=== PATIENT | female | born 1980 | race Caucasian/White ===

== ENCOUNTER → 2016-06-25 | Outpatient (CLI) | payer OTHER, MEDICAID ==
[~2016-06-25] MED LIST: ACET50TA PO; AMOX875T PO; BUPR150T3 PO; BUSP10TA PO; FIORCAP3 PO; GLYB125TA PO; IBUP-1114 PO; OMEP40CA2 PO; PRENTAB40 PO; TYLE500T78 PO
[2016-06-25 19:15] LABS: BASO % 0.2 % (0.0-1.0); EOS # 0.1 K/mm3 (0.0-0.50); EOS % 1.1 % (0.0-3.0); LARGE UNSTAINED CELL # 0.1 K/mm3 (0.0-0.4); LYMPH # 2.5 K/mm3 (1.5-4.5); LYMPH % 25.9 % (24.0-44.0); MEAN CORPUSCULAR HEMOGLOBIN 30.6 pg (27.0-33.0); MEAN CORPUSCULAR HGB CONC 32.3 g/dl (32.0-36.5); MEAN CORPUSCULAR VOLUME 94.7 fl (80.0-96.0); MONO # 0.4 K/mm3 (0.0-0.8); MONO % 4.4 % (0.0-5.0); NEUTROPHILS # 6.2 K/mm3 (1.8-7.7); NEUTROPHILS % 67.4 % (36.0-66.0); PLATELET COUNT, AUTOMATED 375 k/mm3 (150-450); RED CELL DISTRIBUTION WIDTH 13.7 % (11.5-14.5); WHITE BLOOD COUNT 9.2 K/mm3 (4.0-10.0)
[2016-06-28 11:04] LABS: HBsAg Prenatal NEGATIVE (NEGATIVE)
[2016-06-28 11:32] LABS: HIV SCREEN CENTAUR NEGATIVE (NEGATIVE)
== END ==
LOC: M SMT 13:39
PROVIDERS: ATTEND Specialist
DX: Z36 Encounter for antenatal screening of mother (principal)

== ENCOUNTER → 2016-08-02 | Outpatient (CLI) | payer OTHER, MEDICAID | LOC: M SMT 09:58 | PROVIDERS: ATTEND Obstetrics & Gynecology | DX: Z13.79 Encounter for other screening for genetic and chromosomal anomalies (principal) ==

== ENCOUNTER → 2016-08-30 | Outpatient (REF) | payer OTHER, MEDICAID | LOC: M LAB REF 10:58 | PROVIDERS: ATTEND Advanced Practice Midwife | DX: Z36 Encounter for antenatal screening of mother (principal) ==

== ENCOUNTER → 2016-08-30 | Outpatient (CLI) | payer OTHER ==
--- NOTE | 2016-08-31 05:07 | REP ---
Clinical: Anatomical evaluation. Comparison: None . Findings: Examination demonstrates a single live intrauterine in transverse (head to maternal right) presentation. motion is identified by technologist. Placenta is noted anteriorly and grade zero without evidence for placenta previa or abruption. Amniotic fluid volume is normal. Cervix measures 4.9 cm in length and appears closed. No evidence for nuchal cord. Gestational age by current measurements 20 weeks 6 days with PUNEET 01/11/2017 . FHR equals 150 beats per minute. BPD 4.8 cm 20 weeks 4 days HC 17.6 cm 20 weeks 0 days AC 16.0 cm 21 weeks 1 day FL 3.2 cm 19 weeks 6 days HL 3.1 cm 20 weeks 3 days HC/AC ratio 1.09 Estimated weight 356 grams ( 36th percentile). Anatomical assessment demonstrates normal structures including cranium, choroid plexus, cavum, cerebellum/posterior fossa, nose/lips, lungs, four-chamber heart, diaphragm, stomach, cord insertion/three-vessel cord, kidneys/bladder, spine, and extremities. Limited evaluation of the facial profile and cardiac ventricular outflow tracts noted. Impression: Single live intrauterine in transverse lie. Anatomical limitations as described above may warrant reevaluation. Remainder of the anatomical assessment is complete and normal. Signed by Vignesh Pemberton MD 08/31/2016 04:58 A
== END ==
LOC: M SMT 13:04
PROVIDERS: ATTEND Obstetrics & Gynecology
DX: Z34.82 Encounter for supervision of other normal pregnancy, second trimester (principal); Z3A.19 19 weeks gestation of pregnancy

== ENCOUNTER → 2016-10-11 | Outpatient (CLI) | payer OTHER ==
[~2016-10-11] MED LIST changes: +BUPR10TASR PO; +FIOR1CAP PO; +FUROCET; +INSUN SC; +INSUR SC; +NICO21DI5 TD; +OXYC1TAB23 PO; +PERC5TAB12 PO; +PRENTAB9 PO
--- NOTE | 2016-10-11 16:48 | REP ---
Obstetric sonography: History: Supervision of followup anatomy. Findings: Scanning through the gravid uterus demonstrates a viable single intrauterine gestation in a cephalic lie. motion is observed and heart rate is recorded at 144 beats per minute. An anterior grade 1 placenta is seen without evidence of previa or abruption. Amniotic fluid is subjectively normal. Closed cervical length is 4.3 cm. No extrauterine abnormalities observed. There has been less than expected interval growth. Umbilical cord is seen draping across the shoulders. Four-chamber heart and the left and right ventricular cardiac outflow tract views are still less than optimally achieved due to position. The following additional anatomic structures are identified today and felt to be unremarkable: cranium, choroid plexus, cavum, cerebellum posterior fossa, face and profile, lungs, diaphragm, left-sided stomach, abdominal wall cord insertion, three-vessel umbilical cord, kidneys and bladder, spine, upper and lower extremities. Biometry chart: BPD 6.7 cm 27 weeks 0 days Head circumference 24.4 cm 26 weeks 4 days Abdominal circumference 21.5 cm 26 weeks 0 days Femur length 4.6 cm 25 weeks 2 days Humeral length 4.4 cm 26 weeks 3 days Cerebellar diameter 2.9 cm 25 weeks 5 days HC/AC ratio normal 1.14, cephalic index normal 0.77, estimated weight 859 grams 1 pound 14 ounces 20th percentile for 26 weeks 6 days. Impression: Viable single intrauterine gestation at 25 weeks 5 days by today's composite criteria. Expected gestational age estimate based on prior sonography is 26 weeks 6 days. PUNEET by prior sonography 01/11/2017. cardiac structure still less than optimally seen. Signed by Derek Sandoval MD 10/12/2016 07:52 A
[2016-10-11 20:23] LABS: BASO % 0.3 % (0.0-1.0); EOS # 0.2 K/mm3 (0.0-0.50); LARGE UNSTAINED CELL # 0.2 K/mm3 (0.0-0.4); LARGE UNSTAINED CELL % 1.4 % (0.0-4.0); LYMPH # 2.8 K/mm3 (1.5-4.5); LYMPH % 16.5 % (24.0-44.0); MEAN CORPUSCULAR HEMOGLOBIN 31.5 pg (27.0-33.0); MEAN CORPUSCULAR HGB CONC 32.7 g/dl (32.0-36.5); MEAN CORPUSCULAR VOLUME 96.3 fl (80.0-96.0); MONO # 0.9 K/mm3 (0.0-0.8); MONO % 5.8 % (0.0-5.0); NEUTROPHILS # 11.6 K/mm3 (1.8-7.7); NEUTROPHILS % 75.1 % (36.0-66.0); PLATELET COUNT, AUTOMATED 459 k/mm3 (150-450); RED CELL DISTRIBUTION WIDTH 13.2 % (11.5-14.5); WHITE BLOOD COUNT 15.4 K/mm3 (4.0-10.0)
== END ==
LOC: M SMT 14:51
PROVIDERS: ATTEND Specialist
DX: Z36 Encounter for antenatal screening of mother (principal)

== ENCOUNTER → 2016-11-01 | Outpatient (CLI) | payer OTHER ==
--- NOTE | 2016-11-01 13:24 | REP ---
Obstetric ultrasound for growth and follow-up of anatomy: On prior studies, the cardiac structures lower not optimally demonstrated. There is a single intrauterine gestation in a vertex presentation. There is movement and cardiac activity, the heart rate is 133 beats per minute. The placenta is anterior. There is no placenta previa or abruptio. Placenta is grade 1 maturity. The amniotic fluid volume subjectively is normal. Amniotic fluid index is 10.4 (9.0 - 23.3). Cervix is 4.9 cm length. Maternal adnexa and cul-de-sac are unremarkable. By today's ultrasound the gestational age is 29 weeks 2 days with an PUNEET of 01/15/2017. By the first ultrasound this gestation the gestational age is 29 weeks 6 days with an PUNEET of 01/11/2017. weight is 1546 grams (3 pounds, 6 ounces (. This is the 53rd percentile for 29 weeks 6 days. Umbilical artery Doppler assessment: SD ratio 3.52. Resistive index 0.72 Diastolic flow velocity 6.9 cm/sec. This is below the lower range of normal (and centimeters per second). The four-chamber view of the heart is adequately demonstrated. The right ventricular cardiac outflow tract is adequately demonstrated. The left ventricular outflow tract is suboptimally demonstrated. Signed by Berny Monsalve MD 11/01/2016 01:15 P
== END ==
LOC: M SMT 10:38
PROVIDERS: ATTEND Advanced Practice Midwife
DX: O24.419 Gestational diabetes mellitus in pregnancy, unspecified control (principal)

== ENCOUNTER → 2016-11-09 | Outpatient (CLI) | payer OTHER ==
[2016-11-09 19:39] LABS: ALT/SGPT 21 U/L (12-78); AST/SGOT 17 U/L (15-37); BILIRUBIN,TOTAL 0.2 MG/DL (0.2-1.0); GLOMERULAR FILTRATION RATE > 60.0 (>60); URIC ACID 3.5 MG/DL (2.6-6.0)
[2016-11-09 21:49] LABS: BASO % 0.1 % (0.0-1.0); EOS # 0.1 K/mm3 (0.0-0.50); EOS % 0.8 % (0.0-3.0); LARGE UNSTAINED CELL # 0.3 K/mm3 (0.0-0.4); LARGE UNSTAINED CELL % 2.2 % (0.0-4.0); LYMPH # 2.3 K/mm3 (1.5-4.5); LYMPH % 15.2 % (24.0-44.0); MEAN CORPUSCULAR HEMOGLOBIN 31.1 pg (27.0-33.0); MEAN CORPUSCULAR HGB CONC 32.3 g/dl (32.0-36.5); MEAN CORPUSCULAR VOLUME 96.4 fl (80.0-96.0); MONO # 0.9 K/mm3 (0.0-0.8); MONO % 5.9 % (0.0-5.0); NEUTROPHILS # 11.3 K/mm3 (1.8-7.7); NEUTROPHILS % 75.6 % (36.0-66.0); PLATELET COUNT, AUTOMATED 597 k/mm3 (150-450); RED CELL DISTRIBUTION WIDTH 12.8 % (11.5-14.5)
== END ==
LOC: M SMT 14:23
PROVIDERS: ATTEND Advanced Practice Midwife
DX: R51 Headache (principal)

== ENCOUNTER → 2016-11-12 | Outpatient (REF) | payer OTHER ==
[2016-11-12 18:33] LABS: CREATININE, SERUM 0.5 MG/DL (0.6-1.0)
[2016-11-12 19:36] LABS: CREATININE CLEARANCE, URINE 180.6 ML/MIN (75-115)
== END ==
LOC: M LAB REF 18:30
PROVIDERS: ATTEND Advanced Practice Midwife
DX: Z36 Encounter for antenatal screening of mother (principal)

== ENCOUNTER → 2016-11-18 | Outpatient (CLI) | payer OTHER ==
--- NOTE | 2016-11-18 15:02 | REP ---
OB ULTRASOUND: Real-time sonographic evaluation of the gravid uterus is performed. There is a single living intrauterine gestation. Estimated gestational age 32 weeks 2 days, EDC 01/11/2017. Today's measurements indicate appropriate growth. BPD 83 mm = 33 weeks 3 days, 68th percentile HC 305 mm = 34 weeks 0 days, 76th percentile AC 290 mm = 33 weeks 0 days, 62nd percentile FL 58 mm = 30 weeks 2 days, 20th percentile HC/AC ratio 1.05, within normal range. Estimated weight 1953 grams, 46th percentile. Cervix is closed and measures 4.6 cm in length. heart rate 147 beats per minute. Amniotic fluid within normal limits. RON is 9.9, within normal range of 8.5 to 25.3. Biophysical profile score 8 out of 8. S/D ratio 2.78, within normal range. RI 0.64, within normal range. SEEN/GROSSLY UNREMARKABLE Lateral ventricles no Posterior fossa yes Upper lip no Four-chamber heart yes LVOT no RVOT no Stomach yes Cord insertion yes Three vessel cord yes Kidneys yes Bladder yes Spine yes position: Vertex. Placenta: Anterior with no previa. Signed by Berny Camacho MD 11/18/2016 03:19 P
== END ==
LOC: M SMT 12:54
PROVIDERS: ATTEND Advanced Practice Midwife
DX: O14.03 Mild to moderate pre-eclampsia, third trimester (principal); O24.415 Gestational diabetes mellitus in pregnancy, controlled by oral hypoglycemic drugs; Z3A.32 32 weeks gestation of pregnancy

== ENCOUNTER 2016-11-20 10:45 | Outpatient (CLI) | payer OTHER ==
[~2016-11-20] VITALS: Ht 165.1 cm; Wt 90.0 kg
[2016-11-20] VITALS (10 sets, daily range): BP systolic 117–139; BP diastolic 69–89
[~2016-11-20 10:45] MED LIST changes: -BUPR10TASR PO; -FIOR1CAP PO; -FUROCET; -INSUN SC; -INSUR SC; -NICO21DI5 TD; -OXYC1TAB23 PO; -PERC5TAB12 PO; -PRENTAB9 PO
[2016-11-20] MEDS ORDERED: PROMETHAZINE INJ 25 MG/ML VIAL (J2550) IV ONE (12:00)
[2016-11-20] MEDS ORDERED: MORPHINE 2 MG/ML 1ML SYRINGE IV ONE (12:00)
[2016-11-20 12:33] LABS: MEAN CORPUSCULAR HEMOGLOBIN 29.8 pg (27.0-33.0); MEAN CORPUSCULAR HGB CONC 32.3 g/dl (32.0-36.5); MEAN CORPUSCULAR VOLUME 92.3 fl (80.0-96.0); RED CELL DISTRIBUTION WIDTH 12.9 % (11.5-14.5); WHITE BLOOD COUNT 18.8 K/mm3 (4.0-10.0)
[2016-11-20 14:54] LABS: ALT/SGPT 15 U/L (12-78); AST/SGOT 14 U/L (15-37); BILIRUBIN,TOTAL 0.2 MG/DL (0.2-1.0); CREATININE FOR GFR 0.44 MG/DL (0.55-1.02); GLOMERULAR FILTRATION RATE > 60.0 (>60); URIC ACID 3.8 MG/DL (2.6-6.0)
[2016-11-20] MEDS ORDERED: LR 1,000 ML IV ONE (15:00)
== END 2016-11-20 16:40 | disposition home or self-care (01) ==
LOC: M LDO 10:45
PROVIDERS: ATTEND Obstetrics & Gynecology
DX: O14.03 Mild to moderate pre-eclampsia, third trimester (principal); O24.419 Gestational diabetes mellitus in pregnancy, unspecified control; Z3A.31 31 weeks gestation of pregnancy

== ENCOUNTER 2016-11-27 12:20 | Outpatient (CLI) | payer OTHER ==
[~2016-11-27] VITALS: Ht 165.1 cm; Wt 90.0 kg
[2016-11-27] MEDS ORDERED: OMEP40CA2 PO (12:29)
[2016-11-27] MEDS ORDERED: FUROCET (12:29)
[2016-11-27] MEDS ORDERED: PRENTAB9 PO (12:29)
[2016-11-27 12:33] VITALS: BP 121/77
[2016-11-27 12:58] LABS: MEAN CORPUSCULAR HEMOGLOBIN 30.8 pg (27.0-33.0); MEAN CORPUSCULAR HGB CONC 33.3 g/dl (32.0-36.5); MEAN CORPUSCULAR VOLUME 92.6 fl (80.0-96.0); RED CELL DISTRIBUTION WIDTH 12.9 % (11.5-14.5)
[2016-11-27 13:14] LABS: ALT/SGPT 20 U/L (12-78); AST/SGOT 18 U/L (15-37); BILIRUBIN,TOTAL 0.2 MG/DL (0.2-1.0); CREATININE FOR GFR 0.38 MG/DL (0.55-1.02); GLOMERULAR FILTRATION RATE > 60.0 (>60); URIC ACID 3.6 MG/DL (2.6-6.0)
[2016-11-27 13:27] VITALS: BP 133/70
[2016-11-27 13:28] VITALS: BP 116/74
== END 2016-11-27 16:36 | disposition home or self-care (01) ==
LOC: M LDO 12:20
PROVIDERS: ATTEND Obstetrics & Gynecology
DX: O14.03 Mild to moderate pre-eclampsia, third trimester (principal); O26.893 Other specified pregnancy related conditions, third trimester; M54.5 Low back pain; O24.419 Gestational diabetes mellitus in pregnancy, unspecified control; O99.843 Bariatric surgery status complicating pregnancy, third trimester; Z3A.32 32 weeks gestation of pregnancy

== ENCOUNTER → 2016-12-02 | Outpatient (CLI) | payer OTHER ==
[~2016-12-02] MED LIST changes: +BUPR10TASR PO; +FIOR1CAP PO; +FUROCET; +INSUN SC; +INSUR SC; +NICO21DI5 TD; +OXYC1TAB23 PO; +PERC5TAB12 PO; +PRENTAB9 PO
--- NOTE | 2016-12-02 14:38 | REP ---
OBSTETRIC SONOGRAPHY: Limited study. HISTORY: Preeclampsia. Gestational diabetes. For biophysical profile. FINDINGS: Limited obstetric sonography demonstrates a viable single intrauterine gestation in a cephalic lie. An anterior grade 1 placenta is seen without evidence of previa or abruption. Closed cervical length could not be measured due to head position. Amniotic fluid is subjectively normal. Amniotic fluid index is normal at 14.4 cm. heart rate is recorded at 150 beats per minute. Biophysical profile score is 8 out of a possible 8. The S/D ratio in the umbilical cord artery by Doppler is normal at 2.45. Signed by Derek Sandoval MD 12/02/2016 04:00 P
== END ==
LOC: M SMT 13:06
PROVIDERS: ATTEND Advanced Practice Midwife
DX: O24.419 Gestational diabetes mellitus in pregnancy, unspecified control (principal)

== ENCOUNTER → 2016-12-06 | Outpatient (CLI) | payer OTHER ==
--- NOTE | 2016-12-06 13:45 | REP ---
LIMITED OBSTETRIC SONOGRAPHY: History: Decreased movement. FINDINGS: Scanning through the gravid uterus demonstrates a viable single intrauterine gestation in a footling breech lie. motion is observed. heart rate is recorded at 143 beats per minute. An anterior placenta is seen grade 1 without evidence of previa. Amniotic fluid is subjectively normal. RON is normal at 11.7 cm. Biophysical profile score is 8 out of a possible 8. The SD ratio in the umbilical cord artery by Doppler is normal at 2.57. Closed cervical length is 3.2 cm, measured transabdominally. Signed by Derek Sandoval MD 12/06/2016 03:53 P
== END ==
LOC: M RAD 12:49
PROVIDERS: ATTEND Advanced Practice Midwife
DX: O14.03 Mild to moderate pre-eclampsia, third trimester (principal); O24.415 Gestational diabetes mellitus in pregnancy, controlled by oral hypoglycemic drugs

== ENCOUNTER → 2016-12-08 | Outpatient (CLI) | payer OTHER ==
--- NOTE | 2016-12-21 06:27 | REP ---
Clinical: Gestational diabetes for well being. Comparison: 12/06/2016 . Findings: Examination demonstrates a single live intrauterine in cephalic presentation. motion is identified by technologist. Placenta is noted anteriorly and grade one without evidence for placenta previa or abruption. Amniotic fluid volume is normal. No evidence for nuchal cord. Gestational age by first US 35 weeks 1 day with PUNEET 01/11/2017 . Gestational age by current measurements 34 weeks 2 days with PUNEET 01/17/2017. FHR equals 139 beats per minute. Biophysical profile score equals 8/8. Amniotic fluid index 11.4 cm (7.9 - 24.9). Umbilical cord SD ratio equals 2.76 (2.00 - 3.00). Estimated weight 2441 grams ( 38th percentile). Impression: 1. Single live advanced gestation in cephalic presentation demonstrating appropriate interval growth. 2. Biophysical profile score equals 8/8. 3. Amniotic fluid index normal. 4. Estimated weight normal. Signed by Vignesh Pemberton MD 12/21/2016 06:19 A
== END ==
LOC: M SMT 12:17
PROVIDERS: ATTEND Advanced Practice Midwife
DX: O14.03 Mild to moderate pre-eclampsia, third trimester (principal); O24.415 Gestational diabetes mellitus in pregnancy, controlled by oral hypoglycemic drugs; Z3A.34 34 weeks gestation of pregnancy

== ENCOUNTER → 2016-12-17 | Outpatient (CLI) | payer OTHER ==
--- NOTE | 2016-12-17 12:28 | REP ---
Third trimester obstetric ultrasound for preeclampsia: There is a single intrauterine gestation in a vertex presentation. The placenta is anterior. There is no evidence of placenta previa or abruptio. Placenta is grade 1. Subjectively the amniotic fluid volume is normal. The amniotic fluid index is 14.5 (7.6 - 24.7). The heart rate is 136 beats per minute. The cervix is 5.2 cm length. The maternal adnexa and cul-de-sac are unremarkable. Gestational age by the ultrasound today is 35 weeks 5 days with an PUNEET of 01/16/2017. Gestational age by the first ultrasound is 36 weeks 3 days with an PUNEET of 01/11/2017. weight is 2934 grams (6 pounds, 7 ounces). This is the 53rd percentile for 36 weeks 3 days. biophysical profile: Breathing 2 Movement 2 Tone 2 Amniotic fluid volume. 2 Total 11/02 Umbilical artery Doppler assessment: SD ratio 2.74 (1.85 - 2.85) Resistive index 0.64 ( 0.59 - 0.75) Diastolic flow velocity 15.1 cm/sec (normal is greater than 10 cm/sec). Signed by Berny Monsalve MD 12/17/2016 12:20 P
== END ==
LOC: M RAD 10:25
PROVIDERS: ATTEND Advanced Practice Midwife
DX: O24.414 Gestational diabetes mellitus in pregnancy, insulin controlled (principal); Z3A.35 35 weeks gestation of pregnancy

== ENCOUNTER → 2016-12-20 | Outpatient (REF) | payer OTHER | LOC: M LAB REF 17:22 | PROVIDERS: ATTEND Obstetrics & Gynecology | DX: Z36 Encounter for antenatal screening of mother (principal) ==

== ENCOUNTER 2016-12-22 22:05 | Outpatient (CLI) | payer OTHER ==
[~2016-12-22] VITALS: Ht 165.1 cm; Wt 98.0 kg
[~2016-12-22 22:05] MED LIST changes: -BUPR10TASR PO; -FIOR1CAP PO; -INSUN SC; -INSUR SC; -NICO21DI5 TD; -OXYC1TAB23 PO; -PERC5TAB12 PO
[2016-12-22 22:24] VITALS: BP 131/77
[2016-12-22] MEDS ORDERED: KETOROLAC 30 MG/ML VIAL (J1885) IV ONE (22:30)
[2016-12-22] MEDS ORDERED: LR 1,000 ML IV SCH (23:00)
[2016-12-22 23:33] VITALS: BP 119/69
[2016-12-23] MEDS ORDERED: PERCOCET 5MG/325MG TAB PO ONE
[2016-12-23] MEDS ORDERED: INSUR SC (00:21)
[2016-12-23] MEDS ORDERED: FIOR1CAP PO (00:21)
[2016-12-23 01:57] VITALS: BP 128/71
[2016-12-23] MEDS ORDERED: OXYC1TAB23 PO (06:43)
== END 2016-12-23 02:05 | disposition home or self-care (01) ==
LOC: M LDO 22:05
PROVIDERS: ATTEND Specialist
DX: O26.893 Other specified pregnancy related conditions, third trimester (principal); Z3A.36 36 weeks gestation of pregnancy; R51 Headache
CPT/HCPCS: 96374; J1885

== ENCOUNTER → 2016-12-23 | Outpatient (CLI) | payer OTHER ==
[~2016-12-23] MED LIST changes: +BUPR10TASR PO; +FIOR1CAP PO; +INSUN SC; +INSUR SC; +NICO21DI5 TD; +OXYC1TAB23 PO; +PERC5TAB12 PO
--- NOTE | 2016-12-24 02:13 | REP ---
Clinical: Gestational diabetes. well-being. Comparison: 12/17/2016 . Findings: Examination demonstrates a single live intrauterine in breech presentation. motion is identified by technologist. Placenta is noted anteriorly and grade one without evidence for placenta previa or abruption. Amniotic fluid volume is normal. No evidence for nuchal cord. Gestational age by LMP 37 weeks 2 days with PUNEET 01/11/2017 . Gestational age by current measurements 36 weeks 2-day with PUNEET 01/18/2017 . FHR equals 150 beats per minute. Estimated weight 3040 grams ( 48th percentile). Biophysical profile score = 8/8. Amniotic fluid index = 11.0 cm (7.5 - 24.3) Umbilical cord SD ratio = 2.22 (1.60 - 2.60). Impression: Single live advanced gestation in breech presentation. Estimated weight within normal range. Biophysical profile score equals 8/8. Signed by Vignesh Pemberton MD 12/24/2016 02:05 A
== END ==
LOC: M SMT 13:00
PROVIDERS: ATTEND Specialist
DX: O24.414 Gestational diabetes mellitus in pregnancy, insulin controlled (principal); Z3A.36 36 weeks gestation of pregnancy

== ENCOUNTER 2016-12-28 16:31 | Inpatient (IN) | payer OTHER ==
[2016-12-28] VITALS (10 sets, daily range): BP systolic 109–132; BP diastolic 61–83
[~2016-12-28] VITALS: Ht 165.1 cm; Wt 95.3 kg
[~2016-12-28 16:31] MED LIST changes: -BUPR10TASR PO; -INSUN SC; -NICO21DI5 TD; -PERC5TAB12 PO
[2016-12-28] MEDS ORDERED: NS 1,000 ML IV SCH (17:08)
[2016-12-28] MEDS ORDERED: FIORICET TAB PO PRN (17:15)
[2016-12-28] MEDS ORDERED: INSULIN IV RATE CHANGE DOCUMENTATION ML/HR XX SCH (17:15)
[2016-12-28] MEDS ORDERED: miSOPROStol 50 MCG 1/2 TAB (S0191) PO ONE (17:15)
[2016-12-28] MEDS ORDERED: INSUR SC (17:23)
[2016-12-28] MEDS ORDERED: INSUN SC ×2 (17:23)
--- NOTE | 2016-12-28 17:53 | HPE ---
DATE OF ADMISSION: 12/28/2016 Marianela is a 36-year-old 6, para 2-2-1-3 at 36-4/7 weeks gestation with an estimated date of confinement (EDC) of 01/21/2017, based on last menstrual period and confirmed by first trimester ultrasound. She presents to labor and delivery today after evaluation in the office for a report of unrelenting headache that has not been relieved with Tylenol or Fioricet as it has in the past. She does report floaters in her vision, denies blurred vision and tunnel vision, denies epigastric pain and right upper quadrant discomfort. She denies vaginal bleeding, leakage of fluid. She does report an occasional contraction and her fetus has been active. care initiated at [facility] in the first trimester. course complicated by advanced maternal age with history of second trimester loss, history of gastric bypass, bowel obstruction times two, history of depression, history of gestational hypertension and preeclampsia, history of gestational diabetes, this current insulin dependent diabetes, preeclampsia. OBSTETRICAL HISTORY: 1. April 1997 at 8 weeks gestation, spontaneous miscarriage. 2. January 1999, spontaneous vaginal delivery, 20 week twin gestation, demise. 3. February 2000 at 37-3/7 weeks gestation, spontaneous vaginal delivery following an induction of labor of a 7 pound 3 ounce female for gestational hypertension. 4. September 2004 at 40 weeks gestation, spontaneous vaginal delivery following induction of labor for gestational hypertension, 8 pound 4 ounce male. 5. December 2015, spontaneous vaginal delivery following induction of labor for gestational hypertension and diabetes, 6 pound 11 ounce male. OBSTETRICAL LABORATORY DATA: O negative, antibody screen negative, Rubella immune, VDRL nonreactive, urine culture no growth, hepatitis B surface antigen negative, HIV negative, hepatitis C antibody negative, gonorrhea and chlamydia negative, quad screen negative, GBS negative. She did undergo preeclamptic profile and 24-hour urine on 11/09/2016, returned normal labs as far as the liver enzymes, uric acid was 3.5, 24-hour urine for protein was 494.4 mg. Labs will be repeated today. PAST MEDICAL HISTORY: 1. Gestational diabetes. 2. Depression. 3. Anxiety. 4. Abnormal pap smear. 5. Positive human papillomavirus (HPV). 6. Childhood varicella. PAST SURGICAL HISTORY: 1. Gastric bypass. 2. Cholecystectomy. 3. Bowel obstruction times two. FAMILY HISTORY: Hypertension. SOCIAL HISTORY: The patient is single, however the father of the baby is at bedside and supportive. She is a smoker, she reports smoking about a pack per day. She does have a history of opiate addiction and underwent treatment inpatient and outpatient in 2015 and reports being sober since. Positive HPV history. Denies history of abuse; physical, sexual, and emotional. ALLERGIES: No known drug allergies. CURRENT MEDICATIONS: Includes: - vitamin D - omeprazole - Wellbutrin - BuSpar - vitamin B12 - her current insulin regimen, 0 units of regular insulin with 20 units of NPH insulin every morning and 10 units of regular insulin with 19 units of NPH every evening OBJECTIVE: Temperature 97.4, pulse 103, blood pressure 135/82, respirations 16. heart rate is 135, moderate variability, positive accelerations, no decelerations. Abdomen is gravid, cephalic presentation confirmed by bedside ultrasound in the office prior to admission this afternoon. Sterile vaginal exam: 1 cm dilated, 50% effaced, -3 station. ASSESSMENT: Intrauterine at 36-4/7 weeks. heart rate category 1. Preeclampsia with severe features. Insulin dependent gestational diabetes. Advanced maternal age. PLAN: Per consult with Dr. Ney Mckenna, admit the patient to labor and delivery. Sequentials. Bed rest with bathroom privileges. Insulin drip. Betamethasone for lung maturity. Preeclamptic labs, complete blood count (CBC), spot urine, urine toxicology for admission. Start induction of labor due to preeclampsia with severe features, unrelenting headache not improved with medication. I did review risks to induction and expectant management including, but not limited to, failed induction, increased risk for a section, intolerance to labor. Likely will start IV Pitocin, consider assisted rupture of membranes once patient is comfortable with epidural. I do anticipate labor and a spontaneous vaginal delivery. The patient and her partner have had all of their questions answered and desire to proceed with induction.
[2016-12-28 18:15] LABS: MEAN CORPUSCULAR HEMOGLOBIN 28.4 pg (27.0-33.0); MEAN CORPUSCULAR HGB CONC 31.9 g/dl (32.0-36.5); MEAN CORPUSCULAR VOLUME 89.1 fl (80.0-96.0); RED CELL DISTRIBUTION WIDTH 13.9 % (11.5-14.5)
[2016-12-28] MEDS: BETAMETHASONE SOLUSPAN 6MG/ML INJ 5ML (J0702) IM SCH (18:28)
[2016-12-28 18:44] LABS: ALT/SGPT 26 U/L (12-78); AST/SGOT 32 U/L (15-37); BILIRUBIN,TOTAL 0.2 MG/DL (0.2-1.0); CREATININE FOR GFR 0.45 MG/DL (0.55-1.02); GLOMERULAR FILTRATION RATE > 60.0 (>60); URIC ACID 4.5 MG/DL (2.6-6.0)
[2016-12-28] MEDS ORDERED: LR 1,000 ML IV SCH (22:33)
[2016-12-28] MEDS ORDERED: OXYTOCIN DRIP 30 UNITS in APPROPRIATE DILUENT 1 EA IV SCH (22:45)
[2016-12-28] MEDS ORDERED: PROMETHAZINE INJ 25 MG/ML VIAL (J2550) IV ONE (22:45)
[2016-12-28] MEDS ORDERED: BUTORPHANOL 2 MG/ML INJ (J0595) IV ONE (22:45)
[2016-12-28] MEDS: INSULIN HUMAN REGULAR 100 UNITS in NS 99 ML IV SCH (23:44)
[2016-12-29] VITALS (41 sets, daily range): BP systolic 99–167; BP diastolic 51–98
[2016-12-29] MEDS: INSULIN HUMAN REGULAR 100 UNITS in NS 99 ML IV SCH ×2 (00:38→10:06)
[2016-12-29] MEDS ORDERED: FENTANYL 2MCG/ML ROPIVACAINE 0.2% IN 0.9% NACL 200ML IVBAG As Ordered ONE (02:03)
[2016-12-29] MEDS ORDERED: EPIDURAL/PCA KEYS XX PRN (04:10)
[2016-12-29] MEDS ORDERED: EPIDURAL COMMENT XX SCH (04:10)
[2016-12-29] MEDS ORDERED: FENTANYL/ROPIVACAINE/NACL BAG 200 ML EPIDURAL SCH (04:10)
[2016-12-29] MEDS ORDERED: diphenhydrAMINE INJ 50MG/ML VIAL (J1200) IV PRN (04:10)
[2016-12-29] MEDS ORDERED: ONDANSETRON 4MG/2ML VIAL (J2405) IV PRN (04:10)
[2016-12-29] MEDS ORDERED: REFRIGERATOR IV KEYS XX PRN (04:10)
[2016-12-29] MEDS ORDERED: LACTATED RINGER'S 1000 ML IV PRN (04:10)
[2016-12-29] MEDS ORDERED: NALOXONE INJ 0.4 MG/1 ML VIAL (J2310) IV PRN (04:10)
[2016-12-29] MEDS ORDERED: ePHEDrine SULFATE 25 MG/5 ML(5MG/ML) SYRINGE IV PRN (04:10)
[2016-12-29] MEDS: BETAMETHASONE SOLUSPAN 6MG/ML INJ 5ML (J0702) IM SCH (06:39)
[2016-12-29] MEDS: NICOTINE 21MG/24HR 1 EA TRANSDERMAL TD SCH (10:01)
[2016-12-29 11:09] LABS: CORD GAS ABE V -6.8; CORD GAS O2 SAT V 69.5 %; CORD GAS PCO2 V 39.6 mmHg; CORD GAS PH V 7.3 UNITS; CORD GAS PO2 V 30.3 mmHg; CORD GAS SBC V 18.3 MEQ/L; CORD GAS TCO2 V 20.3 MEQ/L
[2016-12-29 11:09] LABS: CORD GAS ABE A -9.1; CORD GAS HCO3 A 20.1 MEQ/L; CORD GAS PCO2 A 56.5 mmHg; CORD GAS PH A 7.17 UNITS; CORD GAS PO2 A 37.2 mmHg; CORD GAS SBC A 16.8 MEQ/L; CORD GAS TCO2 A 21.9 MEQ/L
[2016-12-29] MEDS ORDERED: DOCUSATE SODIUM 100 MG CAP PO PRN (11:15)
[2016-12-29] MEDS ORDERED: RHOGAM 300 MCG (1500 IU) INJ (J2790) IM SCH (11:15)
[2016-12-29] MEDS ORDERED: OXYTOCIN DRIP 30 UNITS in APPROPRIATE DILUENT 1 EA IV SCH (11:15)
[2016-12-29] MEDS ORDERED: DIBUCAINE 1% OINTMENT 30GM TOP PRN (11:15)
[2016-12-29] MEDS ORDERED: ACETAMINOPHEN 500 MG TAB PO PRN (11:15)
[2016-12-29] MEDS ORDERED: ANUSOL HC CREAM 30GM TOP PRN (11:15)
[2016-12-29] MEDS ORDERED: MEASLES,MUMPS,RUBELLA VACCINE INJ (MMR-II) (90707) SC SCH (11:15)
--- NOTE | 2016-12-29 11:26 | DN ---
DATE: 12/29/2016 Marianela is a 36-year-old, 6, para 2-3-1-4 now who was admitted to labor and delivery for induction of labor due to preeclampsia with severe features. She had one dose of misoprostol, assisted rupture of membranes and IV Pitocin and labor did ensue. She did utilize an epidural for her labor coping. She progressed to full dilation at 1045. She pushed to a normal spontaneous vaginal delivery of a live male infant in occiput anterior (OA) position with restitution to left occiput transverse (LOT) position at 1051. There was no nuchal cord. The shoulders delivered spontaneously and the corpus immediately followed. The was placed on the maternal abdomen, crying and active. Mouth and nares were bulb suctioned. The cord was clamped times two and cut by the father of the baby. A spontaneous expulsion of an intact placenta with three vessel cord by Schultze mechanism was at 1056. Uterine hemostasis achieved with IV Pitocin rapid infusion and uterine fundal massage. Estimated blood loss was 250 mL. The perineum and vagina inspected, noted to be intact. No need for any repair. The male weighed 3210 grams, 7 pounds 1 ounce, and 9 and 9. Mom plans to breast feed her son. The family have named their son Temo. At the close of delivery, needle counts, lap counts and instrument counts were correct and verified.
[2016-12-29] MEDS ORDERED: SLF 3 ML SYR IV PRN (14:30)
[2016-12-29] MEDS ORDERED: PERCOCET 5MG/325MG TAB PO PRN (17:15)
[2016-12-29] MEDS: OMEPRAZOLE 20 MG CAP PO SCH (17:45)
[2016-12-29] MEDS ORDERED: PERCOCET 5MG/325MG TAB PO ONE (19:45)
[2016-12-29] MEDS ORDERED: busPIRone 10 MG TAB PO PRN (20:00)
[2016-12-29] MEDS: SLF 3 ML SYR IV SCH (21:05)
[2016-12-29] MEDS: buPROPion **SR TABLET** (ZYBAN) 150MG PO SCH (21:05)
[2016-12-29] MEDS: PERCOCET 5MG/325MG TAB PO SCH (23:33)
[2016-12-29] MEDS: ACETAMINOPHEN 500 MG TAB PO SCH (23:33)
[2016-12-30] MEDS: PERCOCET 5MG/325MG TAB PO SCH (05:03)
[2016-12-30] MEDS: ACETAMINOPHEN 500 MG TAB PO SCH (05:03)
[2016-12-30] MEDS: SLF 3 ML SYR IV SCH ×2 (06:00→22:00)
--- NOTE | 2016-12-30 06:19 | IPNPDOC ---
Text Note Date of Service The patient was seen on 12/30/16. NOTE Pt adequately managed on scheduled tylenol with percocet Q 6 hours overnight. Now reports severe R flank pain that radiates to groin. Writhing in bed, crying. Abdomen soft. Fundus firm, down 1 FB Perineum intact Lochia rubra light without odor VSS - 97.7, 136/74, 91, 97% Stat renal scan, preeclampsia panel and CMP ordered. K pack pending results. VS,Fishbone, I+O VS, Fishbone, I+O Vital Signs Date Time Temp Pulse Resp B/P (MAP) Pulse Ox O2 Delivery O2 Flow Rate FiO2 12/30/16 05:03 18 12/29/16 23:33 Room Air 12/29/16 17:36 98.9 89 133/78 (96) Janine Conti CNM Dec 30, 2016 06:19
[2016-12-30 06:44] LABS: MEAN CORPUSCULAR HEMOGLOBIN 28.5 pg (27.0-33.0); MEAN CORPUSCULAR HGB CONC 31.8 g/dl (32.0-36.5); MEAN CORPUSCULAR VOLUME 89.7 fl (80.0-96.0); RED CELL DISTRIBUTION WIDTH 13.8 % (11.5-14.5); WHITE BLOOD COUNT 21.8 10^3/uL (4.0-10.0)
[2016-12-30 06:46] VITALS: BP 136/74
[2016-12-30 07:04] LABS: ALBUMIN 2.3 GM/DL (3.2-5.2); ALBUMIN/GLOBULIN RATIO 0.59 (1.00-1.93); ALKALINE PHOSPHATASE 109 U/L (45-117); ALT/SGPT 21 U/L (12-78); ANION GAP 10 MEQ/L (8-16); AST/SGOT 21 U/L (15-37); BILIRUBIN,DIRECT < 0.1 MG/DL (0.0-0.2); BILIRUBIN,TOTAL 0.1 MG/DL (0.2-1.0); BLOOD UREA NITROGEN 11 MG/DL (7-18); CALCIUM LEVEL 7.6 MG/DL (8.5-10.1); CARBON DIOXIDE LEVEL 21 MEQ/L (21-32); CHLORIDE LEVEL 109 MEQ/L (98-107); CREATININE FOR GFR 0.44 MG/DL (0.55-1.02); GLOMERULAR FILTRATION RATE > 60.0 (>60); GLUCOSE, FASTING 98 MG/DL (70-105); SODIUM LEVEL 140 MEQ/L (136-145); TOTAL PROTEIN 6.2 GM/DL (6.4-8.2); URIC ACID 5.3 MG/DL (2.6-6.0)
[2016-12-30] MEDS ORDERED: LR 1,000 ML IV SCH (07:30)
[2016-12-30] MEDS ORDERED: LACTATED RINGER'S 1000 ML IV ONE (07:30)
[2016-12-30] MEDS ORDERED: INFLUENZA QUADRIVALENT PF VACCINE 0.5ML SYRINGE (90686) IM ONE (09:00)
[2016-12-30] MEDS: OMEPRAZOLE 20 MG CAP PO SCH (09:06)
[2016-12-30] MEDS: PRENATAL VITAMINS CHEWABLE TABLET PO SCH (09:06)
[2016-12-30] MEDS: buPROPion **SR TABLET** (ZYBAN) 150MG PO SCH ×2 (09:07→21:19)
--- NOTE | 2016-12-30 09:19 | REP ---
Renal ultrasound: The kidneys are normal size. The right kidney measures 12.9 x 7.5 x 5.1 cm. The left kidney measures 13.7 x 6.5 x 6.9 cm. Renal cortical echogenicity is normal bilaterally. There is no hydronephrosis, calculus, mass or cyst on the right on the left. Impression: Normal bilateral renal ultrasound. Bladder ultrasound: The bladder is adequately distended. With color Doppler assessment there are bilateral ureteral jets into the urinary bladder. No bladder wall polyps or masses are identified. Impression: Negative bladder ultrasound. Signed by Berny Monaslve MD 12/30/2016 09:11 A
[2016-12-30] MEDS ORDERED: MORPHINE 2 MG/ML 1ML SYRINGE IV PRN (10:15)
[2016-12-30] MEDS ORDERED: PERCOCET 5MG/325MG TAB PO PRN (10:15)
[2016-12-30] MEDS: PERCOCET 5MG/325MG TAB PO PRN ×3 (10:52→19:36)
[2016-12-30] MEDS: NICOTINE 21MG/24HR 1 EA TRANSDERMAL TD SCH (11:20)
[2016-12-30 18:00] VITALS: BP 130/74
[2016-12-31] MEDS: PERCOCET 5MG/325MG TAB PO PRN ×3 (00:03→13:05)
[2016-12-31 06:00] VITALS: BP 130/78
[2016-12-31] MEDS ORDERED: OXYC1TAB23 PO ×2 (08:07→08:27)
[2016-12-31] MEDS ORDERED: NICO21DI5 TD (08:23)
[2016-12-31] MEDS ORDERED: BUPR10TASR PO (08:23)
[2016-12-31] MEDS ORDERED: PERC5TAB12 PO (08:27)
[2016-12-31] MEDS ORDERED: BUSP10TA PO (08:27)
[2016-12-31] MEDS: PRENATAL VITAMINS CHEWABLE TABLET PO SCH (08:56)
[2016-12-31] MEDS: OMEPRAZOLE 20 MG CAP PO SCH (08:56)
[2016-12-31] MEDS: buPROPion **SR TABLET** (ZYBAN) 150MG PO SCH (08:56)
[2016-12-31] MEDS: NICOTINE 21MG/24HR 1 EA TRANSDERMAL TD SCH ×2 (08:57→12:55)
[2017-01-01 15:19] LABS: GC Butalbital 2181 ng/mL (Cutoff=200)
== END 2016-12-31 14:50 | disposition home or self-care (01) | DRG 560 ==
LOC: M LDI 16:31 → M OBS 12-29 14:10
PROVIDERS: ADMIT Advanced Practice Midwife; ATTEND Advanced Practice Midwife
PROC: 3E0DXGC Introduction of Other Therapeutic Substance into Mouth and Pharynx, External Approach (ICD-10-PCS; 2016-12-28)
PROC: 10E0XZZ Delivery of Products of Conception, External Approach (ICD-10-PCS; principal; 2016-12-29)
PROC: 10907ZC Drainage of Amniotic Fluid, Therapeutic from Products of Conception, Via Natural or Artificial Opening (ICD-10-PCS; 2016-12-29)
DX: O14.14 Severe pre-eclampsia complicating childbirth (principal); O99.344 Other mental disorders complicating childbirth; F32.9 Major depressive disorder, single episode, unspecified; O24.424 Gestational diabetes mellitus in childbirth, insulin controlled; Z3A.36 36 weeks gestation of pregnancy; Z37.0 Single live birth; Z98.84 Bariatric surgery status; F41.0 Panic disorder [episodic paroxysmal anxiety]; Z90.49 Acquired absence of other specified parts of digestive tract; F17.210 Nicotine dependence, cigarettes, uncomplicated; Z79.4 Long term (current) use of insulin; O99.334 Smoking (tobacco) complicating childbirth; O14.93 Unspecified pre-eclampsia, third trimester

== ENCOUNTER → 2018-08-14 | Outpatient (REF) | payer BC, MEDICAID ==
[~2018-08-14] MED LIST changes: -ACET50TA PO; +BUPR10TASR PO; +INSUN SC; +MAPA500T2 PO; +NICO21DI6 TD; +PERC5TAB12 PO
[2018-08-14 13:15] LABS: HEMATOCRIT 30.9 % (36.0-47.0); HEMOGLOBIN 8.9 g/dl (12.0-15.5); MEAN CORPUSCULAR HEMOGLOBIN 23.3 pg (27.0-33.0); MEAN CORPUSCULAR HGB CONC 28.8 g/dl (32.0-36.5); MEAN CORPUSCULAR VOLUME 80.9 fl (80.0-96.0); PLATELET COUNT, AUTOMATED 520 10^3/uL (150-450); RED BLOOD COUNT 3.82 10^6/uL (4.00-5.40); WHITE BLOOD COUNT 6.3 10^3/uL (4.0-10.0)
[2018-08-14 19:10] LABS: ALBUMIN 3.6 GM/DL (3.2-5.2); ALT/SGPT 23 U/L (12-78); BILIRUBIN,TOTAL 0.2 MG/DL (0.2-1.0); BLOOD UREA NITROGEN 14 MG/DL (7-18); CALCIUM LEVEL 8.9 MG/DL (8.5-10.1); CARBON DIOXIDE LEVEL 25 MEQ/L (21-32); CHLORIDE LEVEL 110 MEQ/L (98-107); CHOLESTEROL LEVEL 137 MG/DL (<200); CHOLESTEROL RISK RATIO 2.403 (<5); CREATININE FOR GFR 0.62 MG/DL (0.55-1.30); GLOMERULAR FILTRATION RATE > 60.0 (>60); GLUCOSE, FASTING 76 MG/DL (70-100); HDL CHOLESTEROL 57 MG/DL (>40); LDL CHOLESTEROL 67 MG/DL (<100); MAGNESIUM LEVEL 2.2 MG/DL (1.8-2.4); NON-HDL-C 80 MG/DL; POTASSIUM SERUM 4.9 MEQ/L (3.5-5.1); SODIUM LEVEL 142 MEQ/L (136-145); TOTAL 25(OH) VITAMIN D 61.4 NG/ML (30.0-100.0); TOTAL PROTEIN 6.6 GM/DL (6.4-8.2); TRIGLYCERIDES LEVEL 67 MG/DL (<150); VITAMIN B12 LEVEL > 2000 PG/ML (247-911)
== END ==
LOC: M SFHCADAM 08:07
PROVIDERS: ATTEND Physician Assistant
DX: F17.200 Nicotine dependence, unspecified, uncomplicated (principal); K21.9 Gastro-esophageal reflux disease without esophagitis; F41.8 Other specified anxiety disorders; F90.9 Attention-deficit hyperactivity disorder, unspecified type; Z79.899 Other long term (current) drug therapy

== ENCOUNTER → 2018-09-13 | Outpatient (REF) | payer BC, MEDICAID, SELFPAY ==
[2018-09-13 19:47] LABS: HEMATOCRIT 34.5 % (36.0-47.0); HEMOGLOBIN 10.5 g/dl (12.0-15.5); MEAN CORPUSCULAR HEMOGLOBIN 25.7 pg (27.0-33.0); MEAN CORPUSCULAR HGB CONC 30.4 g/dl (32.0-36.5); MEAN CORPUSCULAR VOLUME 84.4 fl (80.0-96.0); PLATELET COUNT, AUTOMATED 462 10^3/uL (150-450); RED BLOOD COUNT 4.09 10^6/uL (4.00-5.40); WHITE BLOOD COUNT 8.9 10^3/uL (4.0-10.0)
[2018-09-13 19:57] LABS: PERCENT SATURATION 14.3 % (13.2-45.0)
== END ==
LOC: M SFHCADAM 18:09
PROVIDERS: ATTEND Physician Assistant
DX: D64.9 Anemia, unspecified (principal)

== ENCOUNTER → 2019-08-01 | Outpatient (REF) | payer BC, MEDICAID ==
[~2019-08-01] MED LIST changes: -OMEP40CA2 PO; +OMEP40CA97 PO
[2019-08-01 12:56] LABS: BASO # 0.1 10^3/uL (0.0-0.2); BASO % 0.6 % (0.0-1.0); EOS # 0.2 10^3/uL (0.0-0.5); HEMATOCRIT 41.6 % (36.0-47.0); HEMOGLOBIN 13.6 g/dl (12.0-15.5); LYMPH # 2.8 10^3/uL (1.5-5.0); LYMPH % 29.3 % (24.0-44.0); MEAN CORPUSCULAR HEMOGLOBIN 32.1 pg (27.0-33.0); MEAN CORPUSCULAR HGB CONC 32.7 g/dl (32.0-36.5); MEAN CORPUSCULAR VOLUME 98.1 fl (80.0-96.0); MONO # 0.7 10^3/uL (0.0-0.8); MONO % 7.6 % (0.0-5.0); NEUTROPHILS # 5.8 10^3/uL (1.5-8.5); NEUTROPHILS % 60.2 % (36.0-66.0); PLATELET COUNT, AUTOMATED 372 10^3/uL (150-450); RED BLOOD COUNT 4.24 10^6/uL (4.00-5.40); WHITE BLOOD COUNT 9.6 10^3/uL (4.0-10.0)
[2019-08-01 13:25] LABS: ALT/SGPT 27 U/L (12-78); BILIRUBIN,TOTAL 0.4 MG/DL (0.2-1.0); BLOOD UREA NITROGEN 15 MG/DL (7-18); CARBON DIOXIDE LEVEL 27 MEQ/L (21-32); CHLORIDE LEVEL 104 MEQ/L (98-107); CHOLESTEROL LEVEL 162 MG/DL (<200); CREATININE FOR GFR 0.58 MG/DL (0.55-1.30); GLOMERULAR FILTRATION RATE > 60.0 (>60); GLUCOSE, FASTING 101 MG/DL (70-100); HDL CHOLESTEROL 50 MG/DL (>40); LDL CHOLESTEROL 98 MG/DL (<100); NON-HDL-C 112 MG/DL; POTASSIUM SERUM 4.4 MEQ/L (3.5-5.1); SODIUM LEVEL 138 MEQ/L (136-145); TOTAL 25(OH) VITAMIN D 71.5 NG/ML (30.0-100.0); TOTAL PROTEIN 7.4 GM/DL (6.4-8.2); TRIGLYCERIDES LEVEL 72 MG/DL (<150)
== END ==
LOC: M LABDRWAD 12:22
PROVIDERS: ATTEND Nurse Practitioner Psychiatric/Mental Health
DX: F33.1 Major depressive disorder, recurrent, moderate (principal)

== ENCOUNTER → 2020-07-03 | Outpatient (REF) | payer BC ==
[~2020-07-03] MED LIST changes: +BUPR150T12 PO; -BUPR150T3 PO
[2020-07-03 13:37] LABS: HEMATOCRIT 44.7 % (36.0-47.0); HEMOGLOBIN 14.5 g/dl (12.0-15.5); MEAN CORPUSCULAR HEMOGLOBIN 32.1 pg (27.0-33.0); MEAN CORPUSCULAR HGB CONC 32.4 g/dl (32.0-36.5); MEAN CORPUSCULAR VOLUME 98.9 fl (80.0-96.0); PLATELET COUNT, AUTOMATED 331 10^3/uL (150-450); RED BLOOD COUNT 4.52 10^6/uL (4.00-5.40); WHITE BLOOD COUNT 6.3 10^3/uL (4.0-10.0)
[2020-07-03 13:51] LABS: ALT/SGPT 21 U/L (12-78); BILIRUBIN,TOTAL 0.4 MG/DL (0.2-1.0); BLOOD UREA NITROGEN 13 MG/DL (7-18); CALCIUM LEVEL 9.3 MG/DL (8.5-10.1); CARBON DIOXIDE LEVEL 31 MEQ/L (21-32); CHLORIDE LEVEL 108 MEQ/L (98-107); CHOLESTEROL LEVEL 191 MG/DL (<200); CHOLESTEROL RISK RATIO 3.897 (<5); CREATININE FOR GFR 0.66 MG/DL (0.55-1.30); FERRITIN 20 NG/ML (8-252); GLOMERULAR FILTRATION RATE > 60.0 (>58); GLUCOSE, FASTING 89 MG/DL (70-100); HDL CHOLESTEROL 49 MG/DL (>40); IRON (FE) 154 UG/DL (50-170); LDL CHOLESTEROL 131 MG/DL (<100); NON-HDL-C 142 MG/DL; PERCENT SATURATION 58.1 % (13.2-45.0); SODIUM LEVEL 139 MEQ/L (136-145); TOTAL IRON BINDING CAPACITY 265 UG/DL (250-450); TOTAL PROTEIN 7.1 GM/DL (6.4-8.2); TRIGLYCERIDES LEVEL 53 MG/DL (<150)
[2020-07-03 13:53] LABS: TOTAL 25(OH) VITAMIN D 53.4 NG/ML (30.0-100.0)
[2020-07-03 13:54] LABS: FOLATE 13.3 NG/ML; VITAMIN B12 LEVEL > 2000 PG/ML
== END ==
LOC: M SFHCADAM 08:54
PROVIDERS: ATTEND Physician Assistant Medical
DX: D50.8 Other iron deficiency anemias (principal); E55.9 Vitamin D deficiency, unspecified; K21.9 Gastro-esophageal reflux disease without esophagitis; F33.1 Major depressive disorder, recurrent, moderate; F43.10 Post-traumatic stress disorder, unspecified

== ENCOUNTER → 2022-05-18 | Outpatient (REF) | payer BC ==
[~2022-05-18] MED LIST changes: +OMEP40CA4 PO; -OMEP40CA97 PO
[2022-05-18 12:48] LABS: BASO # 0.1 10^3/uL (0.0-0.2); BASO % 0.8 % (0.0-1.0); EOS # 0.2 10^3/uL (0.0-0.5); EOS % 3.3 % (0.0-3.0); HEMATOCRIT 42.6 % (36.0-47.0); HEMOGLOBIN 13.6 g/dl (12.0-15.5); LYMPH # 2.7 10^3/uL (1.5-5.0); LYMPH % 37.6 % (24.0-44.0); MEAN CORPUSCULAR HEMOGLOBIN 31.2 pg (27.0-33.0); MEAN CORPUSCULAR HGB CONC 31.9 g/dl (32.0-36.5); MEAN CORPUSCULAR VOLUME 97.7 fl (80.0-96.0); MONO # 0.5 10^3/uL (0.0-0.8); MONO % 7.5 % (2.0-8.0); NEUTROPHILS # 3.7 10^3/uL (1.5-8.5); NEUTROPHILS % 50.7 % (36.0-66.0); PLATELET COUNT, AUTOMATED 372 10^3/uL (150-450); RED BLOOD COUNT 4.36 10^6/uL (4.00-5.40); WHITE BLOOD COUNT 7.2 10^3/uL (4.0-10.0)
[2022-05-18 13:24] LABS: IRON (FE) 100 UG/DL (50-170); PERCENT SATURATION 32.6 % (13.2-45.0); TOTAL IRON BINDING CAPACITY 307 UG/DL (250-425)
[2022-05-18 13:45] LABS: ALKALINE PHOSPHATASE 84 U/L (46-116); ALT/SGPT 20 U/L (7.0-40); AST/SGOT 22 U/L (<34); BILIRUBIN,TOTAL 0.4 MG/DL (0.3-1.2); BLOOD UREA NITROGEN 16 MG/DL (9-23); CALCIUM LEVEL 9.2 MG/DL (8.5-10.1); CARBON DIOXIDE LEVEL 28 MMOL/L (20-31); CHLORIDE LEVEL 106 MMOL/L (98-107); FERRITIN 14.5 NG/ML (7.3-270.7); FOLLICLE STIMULATING HORMONE 21.8 mIU/ML; GLUCOSE, FASTING 94 MG/DL (60-100); LUTEINIZING HORMONE 8.9 mIU/ML; POTASSIUM SERUM 4.8 MMOL/L (3.5-5.1); SODIUM LEVEL 138 MMOL/L (136-145); THYROID STIMULATING HORMONE 1.433 uIU/ML (0.55-4.78); TOTAL 25(OH) VITAMIN D 27.8 NG/ML (20.0-100.0); VITAMIN B12 LEVEL 1493 PG/ML (211-911)
[2022-05-18 15:04] LABS: FOLATE > 24.0 NG/ML (>5.4)
[2022-05-18 20:30] LABS: GLOMERULAR FILTRATION RATE > 60.0 (>58)
== END ==
LOC: M SFHCADAM 10:39
PROVIDERS: ATTEND Physician Assistant Medical
DX: R06.09 Other forms of dyspnea (principal); F33.1 Major depressive disorder, recurrent, moderate; U09.9 Post COVID-19 condition, unspecified

== ENCOUNTER → 2022-05-18 | Outpatient (CLI) | payer BC | LOC: M ADAMS 10:48 | PROVIDERS: ATTEND Physician Assistant Medical | DX: U09.9 Post COVID-19 condition, unspecified (principal); R06.09 Other forms of dyspnea; R05.3 Chronic cough ==

== ENCOUNTER → 2022-05-26 | Outpatient (CLI) | payer BC | LOC: M CARPUL 09:04 | PROVIDERS: ATTEND Physician Assistant Medical | DX: R06.09 Other forms of dyspnea (principal); U09.9 Post COVID-19 condition, unspecified; R53.83 Other fatigue ==

== ENCOUNTER 2022-09-09 10:01 | Day surgery (SDC) | payer BC ==
[~2022-09-09] VITALS: Ht 165.1 cm; Wt 74.3 kg
[~2022-09-09 10:01] MED LIST changes: +EFFE75CA2 PO; +IRON27TA2 PO; +LORA-243 PO; +NS 1,000 ML IV ONE; +OMEG350C PO; +PANT40TA29 PO; +SYMB16INH INH
[2022-09-09] MEDS ORDERED: fentaNYL 100 MCG/2 ML INJECTION As Ordered ONE (11:56)
[2022-09-09] MEDS ORDERED: LIDOCAINE 2% 100MG/5ML SDV (FOR ANES.) As Ordered ONE (11:56)
[2022-09-09] MEDS ORDERED: propofoL 200 MG/20 ML VIAL As Ordered ONE ×2 (11:56→12:25)
[2022-09-09 12:34] VITALS: TEMP 97.4
[2022-09-09 12:55] VITALS: BP 138/91; O2SAT 100
== END 2022-09-09 13:07 | disposition home or self-care (01) ==
LOC: M OPP 10:01
PROVIDERS: ATTEND Internal Medicine Gastroenterology
DX: K44.9 Diaphragmatic hernia without obstruction or gangrene (principal); K21.00 Gastro-esophageal reflux disease with esophagitis, without bleeding; R13.10 Dysphagia, unspecified; R10.13 Epigastric pain; Z98.0 Intestinal bypass and anastomosis status
CPT/HCPCS: 43249; 88305; J3010

== ENCOUNTER → 2024-05-01 | Outpatient (REF) | payer OTHER ==
[~2024-05-01] MED LIST changes: -NS 1,000 ML IV ONE
[2024-05-01 15:10] LABS: BASO # 0.1 10^3/uL (0.0-0.2); BASO % 0.8 % (0.0-1.0); EOS # 0.1 10^3/uL (0.0-0.5); HEMATOCRIT 43.4 % (36.0-47.0); HEMOGLOBIN 14.1 g/dl (12.0-15.5); LYMPH # 2.5 10^3/uL (1.5-5.0); LYMPH % 37.3 % (24.0-44.0); MEAN CORPUSCULAR HGB CONC 32.5 g/dl (32.0-36.5); MEAN CORPUSCULAR VOLUME 95.4 fl (80.0-96.0); MONO # 0.5 10^3/uL (0.0-0.8); MONO % 7.9 % (2.0-8.0); NEUTROPHILS # 3.4 10^3/uL (1.5-8.5); NEUTROPHILS % 51.8 % (36.0-66.0); PLATELET COUNT, AUTOMATED 357 10^3/uL (150-450); RED BLOOD COUNT 4.55 10^6/uL (4.00-5.40); WHITE BLOOD COUNT 6.6 10^3/uL (4.0-10.0)
[2024-05-01 15:16] LABS: ALBUMIN 4.4 G/DL (3.2-5.2); ALKALINE PHOSPHATASE 101 U/L (35-104); ALT/SGPT 17 U/L (7.0-40); AST/SGOT 14 U/L (<34); BILIRUBIN,TOTAL 0.4 MG/DL (0.3-1.2); BLOOD UREA NITROGEN 16 MG/DL (9-23); CALCIUM LEVEL 10.1 MG/DL (8.5-10.1); CARBON DIOXIDE LEVEL 30 MMOL/L (20-31); CHLORIDE LEVEL 108 MMOL/L (98-107); CREATININE FOR GFR 0.94 MG/DL (0.55-1.30); GLOMERULAR FILTRATION RATE > 60.0 (>58); GLUCOSE, FASTING 104 MG/DL (60-100); POTASSIUM SERUM 4.9 MMOL/L (3.5-5.1); SODIUM LEVEL 139 MMOL/L (136-145); TOTAL PROTEIN 7.7 G/DL (5.7-8.2)
[2024-05-01 15:18] LABS: FREE T4 1.25 NG/DL (0.89-1.76); THYROID STIMULATING HORMONE 1.744 uIU/ML (0.55-4.78)
[2024-05-01 15:39] LABS: HEMOGLOBIN A1c 5.5 % (4.0-6.0)
== END ==
LOC: M SFHCADAM 09:28
PROVIDERS: ATTEND Physician Assistant Medical
DX: R55 Syncope and collapse (principal)

== ENCOUNTER → 2025-02-05 | Outpatient (CLI) | payer OTHER | LOC: M RAD 22:50 | PROVIDERS: ATTEND Family Medicine | DX: R22.31 Localized swelling, mass and lump, right upper limb (principal); Z53.9 Procedure and treatment not carried out, unspecified reason ==

== ENCOUNTER → 2025-02-06 | Outpatient (REF) | payer OTHER | LOC: M SFHCPLAZ 22:05 | PROVIDERS: ATTEND Family Medicine | DX: R22.31 Localized swelling, mass and lump, right upper limb (principal) ==

== ENCOUNTER → 2025-02-07 | Outpatient (CLI) | payer OTHER ==
[~2025-02-07] MED LIST changes: +ISOVUE-370 76% 100 ML VIAL As Ordered ONE
[2025-02-07 14:44] LABS: BASO # 0.1 10^3/uL (0.0-0.2); BASO % 0.8 % (0.0-1.0); EOS # 0.2 10^3/uL (0.0-0.5); EOS % 2.3 % (0.0-3.0); LYMPH # 2.5 10^3/uL (1.5-5.0); LYMPH % 28.6 % (24.0-44.0); MONO # 0.8 10^3/uL (0.0-0.8); MONO % 9.0 % (2.0-8.0); NEUTROPHILS # 5.2 10^3/uL (1.5-8.5); NEUTROPHILS % 59.0 % (36.0-66.0); PLATELET COUNT, AUTOMATED 365 10^3/uL (150-450)
[2025-02-07 15:14] LABS: LDH LACTATE DEHYDROGENASE 217 U/L (120-246)
[2025-02-07 15:15] LABS: C REACTIVE PROTEIN QUANTITATIV < 0.50 MG/DL (<1.0)
[2025-02-07 16:49] LABS: ALT/SGPT 45 U/L (7.0-40); AST/SGOT 33 U/L (<34); CARBON DIOXIDE LEVEL 30 MMOL/L (20-31); CHLORIDE LEVEL 106 MMOL/L (98-107); CREATININE FOR GFR 0.65 MG/DL (0.55-1.30); GLOMERULAR FILTRATION RATE > 90.0 (>58); POTASSIUM SERUM 4.3 MMOL/L (3.5-5.1); SODIUM LEVEL 141 MMOL/L (136-145)
[2025-02-07 19:12] LABS: CALCIUM LEVEL 9.5 MG/DL (8.5-10.1)
== END ==
LOC: M RAD 13:57
PROVIDERS: ATTEND Family Medicine
DX: R91.8 Other nonspecific abnormal finding of lung field (principal)
CPT/HCPCS: 36415; 71260; 80053; 83615; 84145; 85025; 85652; 86140; Q9967

== ENCOUNTER → 2025-03-08 | Outpatient (CLI) | payer OTHER ==
[~2025-03-08] MED LIST changes: -ISOVUE-370 76% 100 ML VIAL As Ordered ONE
== END ==
LOC: M WHC 13:53
PROVIDERS: ATTEND Family Medicine
DX: R22.31 Localized swelling, mass and lump, right upper limb (principal); Z53.9 Procedure and treatment not carried out, unspecified reason

== ENCOUNTER → 2025-03-12 | Outpatient (CLI) | payer OTHER | LOC: M WHC 10:03 | PROVIDERS: ATTEND Family Medicine | DX: R22.31 Localized swelling, mass and lump, right upper limb (principal) | CPT/HCPCS: 76642; 77066; G0279 ==